=== PATIENT | female | born 1950 | race Caucasian/White ===

== ENCOUNTER → 2018-10-16 | Outpatient (REF) | payer OTHER | LOC: M LAB LCGH 15:22 | PROVIDERS: ATTEND Surgery | DX: R19.5 Other fecal abnormalities (principal) ==

== ENCOUNTER → 2024-08-13 | Outpatient (CLI) | payer MEDICARE | LOC: M RAD 13:55 | PROVIDERS: ATTEND Physician Assistant | DX: I87.313 Chronic venous hypertension (idiopathic) with ulcer of bilateral lower extremity (principal); L97.922 Non-pressure chronic ulcer of unspecified part of left lower leg with fat layer exposed; L97.912 Non-pressure chronic ulcer of unspecified part of right lower leg with fat layer exposed ==

== ENCOUNTER → 2024-09-01 | Outpatient (POV) | payer MEDICARE ==
[~2024-09-01] VITALS: Ht 160 cm; Wt 127.0 kg
[~2024-09-01] MED LIST: ALLO300T2; ASPI81CH33 PO; BIOT1TAB PO; FURO20TA2 PO; LEVO125T4 PO; MELO15TA28 PO; METO100T5 PO; OMEP-173 PO; POTA20LI16 PO; VITA180C2 PO; ZINC220CA PO
[2024-09-01 15:43] VITALS: BP 142/68; O2SAT 100
== END ==
LOC: M IRPOV 15:38
PROVIDERS: ATTEND Radiology Diagnostic Radiology
DX: I87.2 Venous insufficiency (chronic) (peripheral) (principal); L97.829 Non-pressure chronic ulcer of other part of left lower leg with unspecified severity; Z79.82 Long term (current) use of aspirin; Z79.899 Other long term (current) drug therapy; Z80.1 Family history of malignant neoplasm of trachea, bronchus and lung; Z82.49 Family history of ischemic heart disease and other diseases of the circulatory system

== ENCOUNTER → 2024-09-23 | Outpatient (CLI) | payer MEDICARE ==
[~2024-09-23] VITALS: Ht 160 cm; Wt 127.7 kg
[~2024-09-23] MED LIST changes: +NS (Normal Saline) 0.9% 1,000 ML IV SCH; +SODIUM CHLORIDE 0.9% 1000 ML XX SCH
[2024-09-23 11:15] VITALS: TEMP 97.8
[2024-09-23] MEDS: MIDAZOLAM INJ 2MG/2ML VIAL IV PRN (12:02)
[2024-09-23] MEDS: fentaNYL 100 MCG/2 ML INJECTION IV PRN (12:02)
[2024-09-23] MEDS: LIDOCAINE 1% MDV 20ML VIAL SC SCH (12:53)
[2024-09-23 13:30] VITALS: BP 154/66; O2SAT 100
== END ==
LOC: M IRPRO 10:56
PROVIDERS: ATTEND Radiology Diagnostic Radiology
DX: I87.313 Chronic venous hypertension (idiopathic) with ulcer of bilateral lower extremity (principal)
CPT/HCPCS: 36482; 99152; 99153; J2250; J3010

== ENCOUNTER → 2024-09-27 | Outpatient (CLI) | payer MEDICARE ==
[~2024-09-27] MED LIST changes: -NS (Normal Saline) 0.9% 1,000 ML IV SCH; -SODIUM CHLORIDE 0.9% 1000 ML XX SCH
== END ==
LOC: M RAD 13:31
PROVIDERS: ATTEND Radiology Diagnostic Radiology
DX: I87.2 Venous insufficiency (chronic) (peripheral) (principal); Z98.890 Other specified postprocedural states; R09.89 Other specified symptoms and signs involving the circulatory and respiratory systems

== ENCOUNTER → 2025-01-05 | Outpatient (POV) | payer MEDICARE ==
[~2025-01-05] VITALS: Ht 160 cm; Wt 119.1 kg
[~2025-01-05] MED LIST changes: +B-122500 PO; +VITA100065 PO
[2025-01-05 14:30] VITALS: BP 146/65; O2SAT 99
== END ==
LOC: M IRPOV 14:06
PROVIDERS: ATTEND Radiology Diagnostic Radiology
DX: Z48.812 Encounter for surgical aftercare following surgery on the circulatory system (principal); I87.2 Venous insufficiency (chronic) (peripheral); L97.819 Non-pressure chronic ulcer of other part of right lower leg with unspecified severity; L97.829 Non-pressure chronic ulcer of other part of left lower leg with unspecified severity; I10 Essential (primary) hypertension; E03.9 Hypothyroidism, unspecified; M10.9 Gout, unspecified; E78.5 Hyperlipidemia, unspecified

== ENCOUNTER → 2025-01-31 | Outpatient (CLI) | payer MEDICARE ==
[2025-01-31 16:14] LABS: CALCIUM LEVEL 8.7 MG/DL (8.3-10.6); CARBON DIOXIDE LEVEL 29 MMOL/L (20-31); CHLORIDE LEVEL 110 MMOL/L (98-107); CREATININE FOR GFR 0.71 MG/DL (0.55-1.30); GLOMERULAR FILTRATION RATE > 90.0 (>39); POTASSIUM SERUM 4.5 MMOL/L (3.5-5.1); SODIUM LEVEL 144 MMOL/L (136-145)
== END ==
LOC: M LAB 14:32
PROVIDERS: ATTEND Radiology Diagnostic Radiology
DX: I87.2 Venous insufficiency (chronic) (peripheral) (principal)

== ENCOUNTER → 2025-02-02 | Outpatient (CLI) | payer MEDICARE ==
[~2025-02-02] MED LIST changes: +ISOVUE-370 76% 100 ML VIAL As Ordered ONE
== END ==
LOC: M RAD 08:49
PROVIDERS: ATTEND Radiology Diagnostic Radiology
DX: I87.8 Other specified disorders of veins (principal)
CPT/HCPCS: 74177; Q9967

== ENCOUNTER → 2025-02-04 | Outpatient (CLI) | payer MEDICARE ==
[~2025-02-04] MED LIST changes: +IBUPROFEN 600 MG TAB PO PRN; -ISOVUE-370 76% 100 ML VIAL As Ordered ONE; +SODIUM CHLORIDE 0.9% 1000 ML XX SCH
[2025-02-04 09:55] VITALS: TEMP 96.8
[2025-02-04] MEDS: LIDOCAINE 1% MDV 20 ML VIAL SC SCH (11:52)
[2025-02-04] MEDS: SODIUM TETRADECYL SULFATE (1%) 20MG/2ML VIAL (SOTRADECOL) IV SCH (11:53)
[2025-02-04] MEDS: MIDAZOLAM INJ 2 MG/2 ML VIAL IV PRN (11:55)
[2025-02-04] MEDS: NS (Normal Saline) 0.9% 1,000 ML IV SCH (11:55)
[2025-02-04 12:15] VITALS: BP 147/67; O2SAT 100
== END ==
LOC: M IRPRO 09:35
PROVIDERS: ATTEND Radiology Diagnostic Radiology
DX: I83.892 Varicose veins of left lower extremity with other complications (principal); L97.829 Non-pressure chronic ulcer of other part of left lower leg with unspecified severity
CPT/HCPCS: 36470; 99152; J2250; J3010

== ENCOUNTER → 2025-02-21 | Outpatient (POV) | payer MEDICARE ==
[~2025-02-21] VITALS: Ht 157.5 cm; Wt 119.1 kg
[~2025-02-21] MED LIST changes: -IBUPROFEN 600 MG TAB PO PRN; -SODIUM CHLORIDE 0.9% 1000 ML XX SCH
[2025-02-21 10:22] VITALS: BP 112/68; O2SAT 100
== END ==
LOC: M IRPOV 09:55
PROVIDERS: ATTEND Registered Nurse School
DX: Z48.812 Encounter for surgical aftercare following surgery on the circulatory system (principal); I83.029 Varicose veins of left lower extremity with ulcer of unspecified site; L97.929 Non-pressure chronic ulcer of unspecified part of left lower leg with unspecified severity

== ENCOUNTER → 2025-03-01 | Outpatient (CLI) | payer MEDICARE | LOC: M RAD 10:59 | PROVIDERS: ATTEND Radiology Diagnostic Radiology | DX: Z01.818 Encounter for other preprocedural examination (principal); I87.2 Venous insufficiency (chronic) (peripheral) ==

== ENCOUNTER → 2025-03-09 | Outpatient (POV) | payer MEDICARE ==
[~2025-03-09] VITALS: Ht 160 cm; Wt 119.1 kg
[2025-03-09 11:15] VITALS: BP 184/82; O2SAT 99
== END ==
LOC: M IRPOV 11:02
PROVIDERS: ATTEND Registered Nurse School
DX: Z48.812 Encounter for surgical aftercare following surgery on the circulatory system (principal); L97.929 Non-pressure chronic ulcer of unspecified part of left lower leg with unspecified severity; I87.312 Chronic venous hypertension (idiopathic) with ulcer of left lower extremity